=== PATIENT | female | born 2000 | race Caucasian/White ===

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

== ENCOUNTER → 2021-01-04 07:08 | Outpatient (BNVA) | payer OTHER, MEDICAID, SELFPAY | PROVIDERS: PCP Family Medicine; Visit Provider Psychiatry & Neurology Psychiatry | DX: F60.3 Borderline personality disorder (principal); F33.1 Major depressive disorder, recurrent, moderate | CPT/HCPCS: 99213 ==

== ENCOUNTER → 2021-01-25 16:09 | Outpatient (BNVA) | payer OTHER, MEDICAID, SELFPAY | PROVIDERS: PCP Family Medicine; Visit Provider Obstetrics & Gynecology | DX: Z30.9 Encounter for contraceptive management, unspecified (principal) | CPT/HCPCS: 81025 ==

== ENCOUNTER 2021-05-29 20:18 | Emergency (ER) | payer MEDICAID, SELFPAY ==
[2021-05-29 20:58] VITALS: BP 103/61; PULSE 88; RESP 16; TEMP 37.1; O2SAT 99; BMI 32.9
--- NOTE | 2021-05-29 21:09 | W.ED.HA ---
HPI - Headache General: Chief Complaint: Headache Stated Complaint: Migraines, Nuesea, Muscle fatigue Time Seen by Provider: 05/29/21 21:09 History of Present Illness: HPI Narrative: Patient is a 20-year-old female comes to the ED with a migraine. Patient has a history of migraines and says this is just like her typical migraine. Started approximately 4 days ago. Patient takes Depakote to help with migraines. She endorses having photophobia and nausea as well. She rates her migraine an 8 out of 10 and describes the pain is located behind the eyes bilaterally. Associated symptoms: Reports nausea; Deny chest pain, fever(s), rash or vomiting Review of Systems Const: Denies: fever(s), chills or fatigue Eyes: Reports: photophobia; Denies: change in vision or eye discomfort ENMT: Denies: throat pain, odynophagia, nasal discharge or nasal congestion Card: Denies: chest pain, palpitations, edema, swelling of feet/ankles, dyspnea on exertion or orthopnea Resp: Denies: dyspnea, productive cough or non-productive cough GI: Reports: nausea; Denies: abdominal pain, vomiting, diarrhea, constipation or hematochezia : Denies: flank pain, dysuria or hematuria Musc: Denies: neck pain, back pain or extremity swelling Skin/Breast: Denies: rash or new lesions Neuro: Reports: headache(s); Denies: numbness in extremities or weakness in extremities PFS ED PFSH: Medical History Abnormal uterine bleeding (AUB) TSH performed by Dr. Velásquez in July 2017 was normal. Per patient report coagulation studies were normal. -Pelvic ultrasound on 08/2017-normal at [facility], Microgestin 06/15 with iron started however patient was up for pill taker. -Depo-Provera given on 02/21/2018 and controls her symptoms well. -Changed to xulane patch on 09/28/2019 as she did not like weight gain with the depo Borderline personality disorder Depression, controlled and mood disorder managed by [facility] Hernandez No pertinent past medical history Denies history of: Denies diabetes, asthma, hypertension, seizures, DVT/PE and thyroid problems PCP: Dr. Velásquez Psychiatric care Surgical History S/P myringotomy with insertion of tube At age 3 S/P tonsillectomy and adenoidectomy at age 3 S/P wisdom tooth extraction Family History Grandmother Breast cancer Paternal, age at diagnosis unknown Diabetes Maternal grandmother and maternal great grandmother Denies family history of Colon cancer Ovarian cancer Hyperlipidemia Hypertension Thyroid condition Stroke Social History Smoking and tobacco status: never smoked Alcohol intake: unknown History of recent travel: No Additional social history: - Physical Exam Const: COMMON NORMALS: no acute distress, patient oriented x3 and alert GENERAL APPEARANCE: cooperative and comfortable HENMT: COMMON NORMALS: normocephalic HEAD & SCALP: normocephalic MOUTH: Normal oral and palatal mucosa present THROAT: posterior oropharynx normal and uvula midline Neck/C-Spine: COMMON NORMALS: supple GENERAL: Yes normal visual inspection Resp: COMMON NORMALS: normal respiratory effort, No retractions, No use of accessory muscles and clear to auscultation bilaterally AUSCULTATION: clear to auscultation bilaterally Cardio: COMMON NORMALS: regular rate, regular rhythm, S1 normal heart sound present, S2 normal heart sound present, No gallops present (Cardio), No clicks present (Cardio), No murmurs present (Cardio) and Peripheral pulses 2+ throughout RATE: regular rate RHYTHM: regular rhythm HEART SOUNDS: S1 normal heart sound present and S2 normal heart sound present PERIPHERAL PULSES: Peripheral pulses 2+ throughout GI: COMMON NORMALS: Normal to inspection, nondistended, normoactive bowel sounds present, Soft to palpation, non-tender and no masses PALPATION: Yes Soft to palpation : COMMON NORMALS: Yes no CVA tenderness BLADDER/KIDNEY EXAM: Yes no CVA tenderness Back/Pelvis: COMMON NORMALS: no CVA tenderness Neuro: COMMON NORMALS: patient oriented x3, CN's II-XII intact bilaterally, moves all extremities, no focal motor deficits and no sensory deficits noted SENSORIUM/ORIENTATION: Yes alert SENSORY EXAM: Yes extremities (intact) MOTOR EXAM: 5/5 motor strength present throughout Skin: GENERAL SKIN EXAM: dry skin Course Reevaluation(s): Reevaluation #1: Patient's migraine went down to a 3 and is manageable. Patient would like to go home and rest now. Vital Signs: Vital signs: Vital Signs Temperature 98.7 F 05/29/21 20:58 Pulse Rate 87 05/29/21 22:43 Respiratory Rate 16 05/29/21 22:43 Blood Pressure 122/73 05/29/21 22:43 Pulse Oximetry 100 05/29/21 22:43 MDM - Headache MDM Narrative: Medical decision making narrative: Patient is a 20-year-old female comes to the ED with a migraine. Patient has a history of migraine headaches and says that this one is just like her past migraines. Vital stable and no neuro deficits noted on exam. She was given migraine cocktail while here in the ED and migraine improved from an 8 down to a 3. Patient felt like migraine was manageable and she was discharged home. Discharge Plan Discharge Patient Disposition: Home Clinical Impression: Migraine Qualifiers: Migraine type: without aura Status migrainosus presence: without status migrainosus Intractability: not intractable Qualified Code(s): G43.009 - Migraine without aura, not intractable, without status migrainosus Condition: Stable Prescriptions: No Action medroxyprogesterone [Depo-Provera] 150 mg/mL suspension 150 mg IM .EVERY 90 DAYS Qty: 1 RF: 3 fluoxetine 40 mg capsule 40 mg PO QAM Qty: 30 RF: 5 divalproex [Depakote] 250 mg tablet,delayed release (DR/EC) 250 mg PO DAILY Qty: 30 RF: 1 Naprosyn 500 mg tablet 500 mg PO BID PRN (Reason: pain) Qty: 20 RF: 0 Discharge Orders: Discharge ED (Routine); Ordered 05/29/21 Ordered By: Sunday Haji Referrals: Teodoro Velásquez MD [Primary Care Provider] - Discharge Diet: Regular Discharge Activity: Resume usual activity Patient Instructions: Migraine Headache (ED) Activity Restrictions/Additional Instructions: Follow-up with medical provider as directed in 7 to 10 days for reevaluation. Continue taking all home medications as previously prescribed. Return to the ER or your medical provider if condition worsens. Please read and understand discharge instructions. Thank you for choosing [facility] for your healthcare needs today. Please realize this is an emergency room and that we are providing you with a medical screening exam and this may not be complete and all inclusive of all the testing and or work up that you may need to determine your ailment or severity of your illness. It is very important that you follow up as instructed or that you return to the Emergency Department should you have concerns or if your condition changes or worsens in any way. Coding Level of Care Code ED Manager Market Research for Marylu Fwd Exam Comprehensive
[2021-05-29] MEDS: sodium chloride 0.9% 1,000 ML 999 ML IV (21:41)
[2021-05-29] MEDS: diphenhydrAMINE 50 mg/mL SDV 1mL 25 MG IVP (21:42)
[2021-05-29] MEDS: dexamethasone 10 mg/mL INJ IVP (21:44)
[2021-05-29] MEDS: ketorolac 30 mg/mL INJ IVP (21:45)
[2021-05-29] MEDS: metoclopramide 5 mg/mL SDV 2 mL 10 MG IVP (21:47)
[2021-05-29 22:43] VITALS: BP 122/73; PULSE 87; RESP 16; O2SAT 100
== END 2021-05-29 22:44 | disposition home or self-care (01) ==
PROVIDERS: Emergency Provider Physician Assistant; PCP Family Medicine
DX: G43.009 Migraine without aura, not intractable, without status migrainosus (principal)
CPT/HCPCS: 96361; 96374; 96375; 99284; J1100; J1200; J1885; J2765; J7030

== ENCOUNTER 2021-07-27 19:12 | Emergency (ER) | payer MEDICAID, SELFPAY ==
--- NOTE | 2021-07-27 19:20 | ECG_ITS ---
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 Measurements Intervals [place] Rate: 71 P: 98 AR: 272 QRS: -67 QRSD: 93 T: 21 QT: 289 QTc: 315 Interpretive Statements ELECTRONIC ATRIAL PACEMAKER ELECTRONIC VENTRICULAR PACEMAKER -- CONTOUR ANALYSIS BASED ON INTRINSIC RHYTHM INFERIOR MYOCARDIAL INFARCTION , PROBABLY OLD [40+ ms Q WAVE AND/OR ST/T ABNORMALITY IN II/aVF] ANTEROSEPTAL MYOCARDIAL INFARCTION , OF INDETERMINATE AGE [40+ ms Q WAVE IN V1-V4] Compared to ECG 07/27/2021 20:00:07 Myocardial infarct finding now present Sinus tachycardia no longer present Electronically Signed On 07-29-2021 8:37:37 MUSHROOM PACKER by Luli Mesa M.D. [id number]
--- NOTE | 2021-07-27 19:20 | XRR_ITS ---
PROCEDURE INFORMATION: Exam: XR Chest Exam date and time: 07/27/2021 7:20 PM Age: 21 years old Clinical indication: Sternal or substernal pain; Additional info: Cp TECHNIQUE: Imaging protocol: XR of the chest. Views: 1 view. COMPARISON: CR XR chest 1V portable [id number] 12/09/2020 2:36 AM FINDINGS: Lungs: Unremarkable. No consolidation. Pleural spaces: Unremarkable. No pleural effusion. No pneumothorax. Heart/Mediastinum: Unremarkable. No cardiomegaly. Bones/joints: Unremarkable. XR/XR chest 1V portable [id number] IMPRESSION: No acute findings.
[2021-07-27 19:28] VITALS: BP 93/60; PULSE 148; RESP 20; TEMP 38.8; O2SAT 97; BMI 34.0
--- NOTE | 2021-07-27 19:49 | ED_ITS ---
HPI - COVID General: Chief Complaint: COVID symptoms Stated Complaint: Afib Blood pressure Low Time Seen by Provider: 07/27/21 19:37 Triage information: Has fever, cough or shortness of breath . No known COVID + exposure last 14 days History of Present Illness: 21-year-old female who states that over the last 2 days she has been having a fever some generalized body aches. She has a temperature 101.8 states that she has felt had some nausea as well. She states that she does have a headache but has a history of migraines and daily headache states this feels like her previous headaches denies any neck stiffness states headache is a 2 out of 10. Denies any cough or dysuria. No vomiting or diarrhea. COVID 19 common symptoms: positive fever(s), chills, body aches and headache(s); negative dyspnea, throat pain, nausea, vomiting or diarrhea COVID 19 other sytmptoms: negative chest pain COVID Results: SARS-CoV-2 Antigen (Rapid) Negative (Negative) 07/27/21 20:05 07/27/21 Review of Systems Const: Reports: fever(s), chills and body aches; Denies: change in appetite Eyes: Denies: blurry vision or eye discomfort ENMT: Denies: throat pain or dental pain Card: Denies: chest pain Resp: Denies: dyspnea GI: Denies: abdominal pain, nausea, vomiting or diarrhea : Denies: dysuria Musc: Denies: neck pain or back pain Skin/Breast: Denies: rash Neuro: Reports: headache(s) Psych: Denies: depression Bobby/Lymph: Denies: easy bruising All/Imm: Denies: urticaria PFSH ED PFSH: Medical History Abnormal uterine bleeding (AUB) TSH performed by Dr. Velásquez in July 2017 was normal. Per patient report coagulation studies were normal. -Pelvic ultrasound on 08/2017-normal at [facility], Microgestin 06/15 with iron started however patient was up for pill taker. -Depo-Provera given on 02/21/2018 and controls her symptoms well. -Changed to xulane patch on 09/28/2019 as she did not like weight gain with the depo Borderline personality disorder Depression, controlled and mood disorder managed by [facility] Hernandez No pertinent past medical history Denies history of: Denies diabetes, asthma, hypertension, seizures, DVT/PE and thyroid problems PCP: Dr. Velásquez Psychiatric care Surgical History S/P myringotomy with insertion of tube At age 3 S/P tonsillectomy and adenoidectomy at age 3 S/P wisdom tooth extraction Family History Grandmother Breast cancer Paternal, age at diagnosis unknown Diabetes Maternal grandmother and maternal great grandmother Denies family history of Colon cancer Ovarian cancer Hyperlipidemia Hypertension Thyroid condition Stroke Social History Smoking and tobacco status: never smoked Alcohol intake: unknown History of recent travel: No Additional social history: - Physical Exam Const: COMMON NORMALS: no acute distress, patient oriented x3 and healthy appearing HENMT: COMMON NORMALS: normocephalic and atraumatic HEAD & SCALP: normocephalic and atraumatic Eye: COMMON NORMALS: Equal, round and reactive pupils present and EOMs intact bilaterally PUPIL: Yes Equal, round and reactive pupils present Neck/C-Spine: COMMON NORMALS: full ROM, supple and no meningeal signs Chest: COMMONS NORMALS: normal inspection of the chest and normal palpation of entire chest wall Resp: COMMON NORMALS: normal respiratory effort, No retractions, No use of accessory muscles and clear to auscultation bilaterally AUSCULTATION: clear to auscultation bilaterally Cardio: COMMON NORMALS: regular rhythm and No murmurs present (Cardio) RATE: tachycardic RHYTHM: regular rhythm GI: COMMON NORMALS: Normal to inspection, nondistended, normoactive bowel sounds present, Soft to palpation, non-tender and no masses PALPATION: Yes Soft to palpation Extremity: COMMON NORMALS: normal to inspection and full ROM Neuro: COMMON NORMALS: patient oriented x3, moves all extremities and no focal motor deficits MENINGEAL SIGNS: Yes no meningeal signs Psych: COMMON NORMALS: mental status grossly normal, Normal thought process present and cooperative THOUGHT PROCESS: Normal thought process present Skin: COMMON NORMALS: no rashes or lesions noted and no wounds GENERAL SKIN EXAM: no rashes or lesions noted Course Vital Signs: Vital signs: Vital Signs Temperature 101.8 F H 07/27/21 19:28 Pulse Rate 101 H 07/27/21 21:48 Respiratory Rate 20 H 07/27/21 21:48 Blood Pressure 111/60 07/27/21 21:48 Pulse Oximetry 99 07/27/21 21:48 MDM - COVID Medical Decision Making Patient presents here with fever her white count lactate are normal headache resolved with Toradol did offer LP but she states she feels improved she believes it was her migraine and she is headache free currently her vitals are much improved believe she is likely tachycardic at first due to her fever her heart rate is now in the 90s blood pressure is normal patient is requesting discharge will follow blood cultures start on Keflex and have her follow-up with PCP she is return if worsening. Lactic acid was normal as well. Lab Data : 07/27/21 19:45 07/27/21 19:45 Radiology Impressions Chest X-Ray 07/27/21 19:20 IMPRESSION: No acute findings. Laboratory Results WBC 5.9 10^3/uL (4.5-13.0) 07/27/21 19:45 RBC 5.18 10^6/uL (4.1-5.3) 07/27/21 19:45 Hgb 13.6 g/dL (11.5-15.3) 07/27/21 19:45 Hct 40.6 % (37.0-47.0) 07/27/21 19:45 MCV 78.4 fl (81-99) L 07/27/21 19:45 MCH 26.3 pg (28.0-34.0) L 07/27/21 19:45 MCHC 33.5 g/dL (30.0-36.0) 07/27/21 19:45 RDW 13.2 % (12.1-15.1) 07/27/21 19:45 Plt Count 240 10^3/cmm (130-400) 07/27/21 19:45 MPV 11.4 fL (7.4-10.4) H 07/27/21 19:45 Neut % (Auto) 83.5 % 07/27/21 19:45 Lymph % (Auto) 10.2 % 07/27/21 19:45 Villalba % (Auto) 5.6 % 07/27/21 19:45 Eos % (Auto) 0.2 % 07/27/21 19:45 Baso % (Auto) 0.2 % 07/27/21 19:45 Neut # (Auto) 4.93 10^3/uL (1.8-8.0) 07/27/21 19:45 Lymph # (Auto) 0.6 10^3/uL (1.5-6.5) L 07/27/21 19:45 Villalba # (Auto) 0.3 10^3/uL (0.2-0.9) 07/27/21 19:45 Eos # (Auto) 0.0 10^3/uL (0.0-0.8) 07/27/21 19:45 Baso # (Auto) 0.0 10^3/uL (0.0-0.1) 07/27/21 19:45 Nucleated RBC % (auto) 0 % 07/27/21 19:45 Nucleated RBCs # 0.0 /100WBC 07/27/21 19:45 Sodium 135 mmol/L (136-145) L 07/27/21 19:45 Potassium 3.5 mmol/L (3.5-5.1) 07/27/21 19:45 Chloride 102 mmol/L (98-107) 07/27/21 19:45 Carbon Dioxide 20 mmol/L (22-29) L 07/27/21 19:45 Anion Gap 16.5 (5-19) 07/27/21 19:45 BUN 13 mg/dL (6-20) 07/27/21 19:45 Creatinine 0.6 mg/dL (0.5-0.9) 07/27/21 19:45 GFR Calculation 127.5 mL/min (90-130) 07/27/21 19:45 Glucose 100 mg/dL (65-115) 07/27/21 19:45 Calculated Osmolality 280 mOsm/kg (285-295) L 07/27/21 19:45 Lactic Acid 1.0 mmol/L (0.5-2.2) 07/27/21 19:57 Calcium 9.3 mg/dL (8.5-10.5) 07/27/21 19:45 Total Bilirubin 0.5 mg/dL (0.15-1.2) 07/27/21 19:45 AST 11 U/L (0-32) 07/27/21 19:45 ALT 10 U/L (0-33) 07/27/21 19:45 Alkaline Phosphatase 69 IU/L (35-105) 07/27/21 19:45 Total Protein 7.2 g/dL (6.6-8.7) 07/27/21 19:45 Albumin 4.3 g/dL (3.5-5.2) 07/27/21 19:45 Globulin 2.9 g/dL (1.3-4.6) 07/27/21 19:45 HCG, Qual Negative (Negative) 07/27/21 21:04 Urine Color Yellow (Yellow) 07/27/21 21:04 Urine Appearance Clear (CLEAR) 07/27/21 21:04 Urine pH 5 (5-7) 07/27/21 21:04 Ur Specific [place] 1.020 (1.005-1.030) 07/27/21 21:04 Urine Protein Neg (Negative) 07/27/21 21:04 Urine Glucose (UA) Norm (Normal) 07/27/21 21:04 Urine Ketones 1+ (Negative) H 07/27/21 21:04 Urine Blood Neg (Negative) 07/27/21 21:04 Urine Nitrate Negative (Negative) 07/27/21 21:04 Urine Bilirubin 1+ (Negative) H 07/27/21 21:04 Urine Urobilinogen Neg mg/dL (Negative) 07/27/21 21:04 Ur Leukocyte Esterase Negative (Negative) 07/27/21 21:04 Influenza Type A Ag Negative (Negative) 07/27/21 20:05 Influenza Type B Ag Negative (Negative) 07/27/21 20:05 SARS-CoV-2 Ag (Rapid) Negative (Negative) 07/27/21 20:05 Group A Strep Rapid Negative (Negative) 07/27/21 20:05 SARS-CoV-2 Antigen (Rapid) Negative (Negative) 07/27/21 20:05 07/27/21 EKG Data EKG 1: I personally reviewed and interpreted this EKG as follows: EKG interpretation date: 07/27/21 EKG interpretation time: 20:00 Interpretation: sinus tach hr [address] or t wave abnormalities qrs 86 qtc 359 Discharge Plan Discharge Patient Disposition: Home Clinical Impression: Migraine headache Fever Qualifiers: Fever type: unspecified Qualified Code(s): R50.9 - Fever, unspecified Condition: Stable Prescriptions: New cephalexin 500 mg capsule 500 mg PO TID 7 Days Qty: 21 0RF No Action medroxyprogesterone [Depo-Provera] 150 mg/mL suspension 150 mg IM .EVERY 90 DAYS Qty: 1 3RF fluoxetine 40 mg capsule 40 mg PO QAM Qty: 30 5RF divalproex [Depakote] 250 mg tablet,delayed release (DR/EC) 250 mg PO DAILY Qty: 30 1RF Naprosyn 500 mg tablet 500 mg PO BID PRN (Reason: pain) Qty: 20 0RF Discharge Orders: Discharge ED (Routine); Ordered 07/27/21 Ordered By: Denia Gonzalez Referrals: Teodoro Velásquez MD [Primary Care Provider] - 1-3 days Discharge Diet: Advance as tolerated Discharge Activity: Resume usual activity Patient Instructions: Fever in Adults (ED), Acute Headache (ED) Coding Level of Care Code ED Asphalt Screed Operator for Chg Fwd Exam Comprehensive
[2021-07-27 19:55] LABS: Basophils % 0.2 %; Eosinophils % 0.2 %; Hematocrit 40.6 % (37.0-47.0); Hemoglobin 13.6 g/dL (11.5-15.3); Lymphocytes # 0.6 10^3/uL (1.5-6.5); Lymphocytes % 10.2 %; Mean Corpuscular HGB Conc 33.5 g/dL (30.0-36.0); Mean Corpuscular Hemoglobin 26.3 pg (28.0-34.0); Mean Corpuscular Volume 78.4 fl (81-99); Mean Platelet Volume 11.4 fL (7.4-10.4); Monocytes # 0.3 10^3/uL (0.2-0.9); Monocytes % 5.6 %; Neutrophils # 4.93 10^3/uL (1.8-8.0); Neutrophils % 83.5 %; Nucleated Red Blood Cells % 0 %; Platelet Count 240 10^3/cmm (130-400); Red Blood Count 5.18 10^6/uL (4.1-5.3); Red Cell Distribution Width 13.2 % (12.1-15.1); White Blood Count 5.9 10^3/uL (4.5-13.0)
[2021-07-27] MEDS: sodium chloride 0.9% 1,000 ML 999 ML IV ×2 (20:33→21:32)
[2021-07-27] MEDS: acetaminophen 500 mg Tablet 1000 MG PO (20:33)
[2021-07-27] MEDS: ketorolac 30 mg/mL INJ IVP (20:33)
[2021-07-27 20:35] LABS: Alanine Aminotransferase 10 U/L (0-33); Albumin Level 4.3 g/dL (3.5-5.2); Alkaline Phosphatase 69 IU/L (35-105); Anion Gap 16.5 (5-19); Aspartate Amino Transferase 11 U/L (0-32); Blood Urea Nitrogen 13 mg/dL (6-20); Calcium 9.3 mg/dL (8.5-10.5); Carbon Dioxide 20 mmol/L (22-29); Chloride 102 mmol/L (98-107); Creatinine Clr Calc Pharmacy 162.3132; Globulin 2.9 g/dL (1.3-4.6); Glomerular Filtration Rate 127.5 mL/min (90-130); Glucose 100 mg/dL (65-115); Osmolality Calculated 280 mOsm/kg (285-295); Potassium 3.5 mmol/L (3.5-5.1); Sodium 135 mmol/L (136-145); Total Bilirubin 0.5 mg/dL (0.15-1.2); Total Protein 7.2 g/dL (6.6-8.7)
[2021-07-27 20:39] VITALS: O2SAT 97
[2021-07-27 20:44] LABS: Rapid Strep A Test Negative (Negative)
[2021-07-27 21:00] VITALS: BP 108/58; PULSE 108; RESP 20; O2SAT 99
[2021-07-27 21:01] LABS: Influenza A by IFA Negative (Negative); Influenza B by IFA Negative (Negative)
[2021-07-27 21:02] LABS: SARS Covid-2 Antigen Negative (Negative)
[2021-07-27 21:10] LABS: Add Urine Microscopic? NO; Charge for UA Resulting for Rev
[2021-07-27 21:12] LABS: Bilirubin Urine 1+ (Negative); Blood Urine Neg (Negative); Glucose Urine UA Norm (Normal); Ketones Urine 1+ (Negative); Leukocyte Esterase Urine Negative (Negative); Nitrate Urine Negative (Negative); Protein Urine Neg (Negative); Urine Appearance Clear (CLEAR); Urine Color Yellow (Yellow); Urobilinogen Urine Neg (Negative); pH Urine 5 (5-7)
--- NOTE | 2021-07-27 21:20 | ECG_ITS ---
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 Measurements Intervals [place] Rate: 122 P: 36 MI: 138 QRS: 24 QRSD: 86 T: 56 QT: 286 QTc: 409 Interpretive Statements SINUS TACHYCARDIA Compared to ECG 12/09/2020 02:58:12 Sinus rhythm no longer present Sinus arrhythmia no longer present Electronically Signed On 07-29-2021 9:06:36 DATA ANALYSIS MANAGER by Luli Mesa M.D. [id number]
[2021-07-27 21:24] LABS: HCG Qualitative Urine. Negative (Negative)
[2021-07-27 21:48] VITALS: BP 111/60; PULSE 101; RESP 20; O2SAT 99
[2021-07-27] MEDS: cephALEXin 500 mg Capsule PO (22:18)
[2021-07-27 22:19] VITALS: BP 100/62; PULSE 103; RESP 20; TEMP 36.9; O2SAT 100
== END 2021-07-27 22:21 | disposition home or self-care (01) ==
PROVIDERS: Emergency Provider Emergency Medicine; PCP Family Medicine
DX: R50.9 Fever, unspecified (principal); G43.909 Migraine, unspecified, not intractable, without status migrainosus; Z20.822 Contact with and (suspected) exposure to COVID-19
CPT/HCPCS: 71045; 80053; 81003; 81025; 83605; 85025; 87040; 87081; 87426; 87804; 87880; 93005; 96361; 96374; 99284; J1885; J7030

== ENCOUNTER → 2021-08-16 07:49 | Outpatient (BNVA) | payer MEDICAID, SELFPAY | PROVIDERS: PCP Family Medicine; Visit Provider Psychiatry & Neurology Psychiatry | DX: F60.3 Borderline personality disorder (principal); F33.42 Major depressive disorder, recurrent, in full remission | CPT/HCPCS: 99214 ==

== ENCOUNTER 2021-09-25 11:58 | Outpatient (CLI) | payer MEDICAID, OTHER, SELFPAY ==
[2021-09-25 14:43] LABS: Basophils % 0.5 %; Eosinophils # 0.1 10^3/uL (0.0-0.8); Eosinophils % 0.8 %; Hematocrit 39.7 % (37.0-47.0); Hemoglobin 13.4 g/dL (11.5-15.3); Lymphocytes # 1.7 10^3/uL (1.5-6.5); Lymphocytes % 27.1 %; Mean Corpuscular HGB Conc 33.8 g/dL (30.0-36.0); Mean Corpuscular Hemoglobin 26.6 pg (28.0-34.0); Mean Corpuscular Volume 78.9 fl (81-99); Monocytes # 0.4 10^3/uL (0.2-0.9); Neutrophils # 4.13 10^3/uL (1.8-8.0); Neutrophils % 65.4 %; Nucleated Red Blood Cells % 0 %; Platelet Count 275 10^3/cmm (130-400); Red Blood Count 5.03 10^6/uL (4.1-5.3); Red Cell Distribution Width 13.4 % (12.1-15.1); White Blood Count 6.3 10^3/uL (4.5-13.0)
[2021-09-25 15:05] LABS: Ammonia 22 umol/L (11-51)
[2021-09-25 15:19] LABS: Alanine Aminotransferase 12 U/L (0-33); Albumin Level 4.4 g/dL (3.5-5.2); Alkaline Phosphatase 67 IU/L (35-105); Anion Gap 15.6 (5-19); Aspartate Amino Transferase 13 U/L (0-32); Blood Urea Nitrogen 10 mg/dL (6-20); Calcium 9.6 mg/dL (8.5-10.5); Carbon Dioxide 22 mmol/L (22-29); Chloride 100 mmol/L (98-107); Ferritin 80 ng/mL (15-150); Globulin 3.1 g/dL (1.3-4.6); Glomerular Filtration Rate 157.3 mL/min (90-130); Glucose 81 mg/dL (65-115); Iron 30 ug/dL (37-145); Osmolality Calculated 276 mOsm/kg (285-295); Percent Saturation 10.4 % (20-50); Potassium 3.6 mmol/L (3.5-5.1); Sodium 134 mmol/L (136-145); Thyroid Stimulating Hormone 2.79 uIU/mL (0.27-4.20); Total Bilirubin 0.4 mg/dL (0.15-1.2); Total Iron Binding Capacity 286 mcg/dl; Total Protein 7.5 g/dL (6.6-8.7); Unsaturated Iron Binding 256 ug/dL (112-347); Vitamin B12 464 pg/mL (232-1245)
[2021-09-25 15:36] LABS: Folate Level 19.2 ng/mL (4.8-37.3)
[2021-09-25 20:31] LABS: Valproic Acid Level 16.9 ug/mL (50-100)
== END 2021-09-25 11:59 | disposition home or self-care (01) ==
LOC: NSACUTE 13:45
PROVIDERS: PCP Family Medicine; Visit Provider Nurse Practitioner
DX: G43.909 Migraine, unspecified, not intractable, without status migrainosus (principal)
CPT/HCPCS: 80053; 80164; 82140; 82607; 82728; 82746; 83540; 83550; 84443; 85025; 99213; 99214

== ENCOUNTER → 2021-10-27 08:01 | Outpatient (BNVA) | payer OTHER, SELFPAY | PROVIDERS: PCP Family Medicine; Visit Provider Psychiatry & Neurology Psychiatry | DX: F33.42 Major depressive disorder, recurrent, in full remission (principal); F60.3 Borderline personality disorder | CPT/HCPCS: 99214 ==

== ENCOUNTER → 2022-09-24 11:00 | Outpatient (BNVA) | payer MEDICAID, SELFPAY | PROVIDERS: PCP Family Medicine; Visit Provider Podiatrist Foot & Ankle Surgery | DX: M72.2 Plantar fascial fibromatosis (principal) | CPT/HCPCS: 73630 ==

== ENCOUNTER → 2022-11-02 09:30 | Outpatient (BNVA) | payer MEDICAID, SELFPAY | PROVIDERS: PCP Family Medicine; Visit Provider Nurse Practitioner Women's Health | DX: Z12.4 Encounter for screening for malignant neoplasm of cervix (principal); N93.9 Abnormal uterine and vaginal bleeding, unspecified | CPT/HCPCS: 88175 ==

== ENCOUNTER → 2023-02-06 11:03 | Outpatient (BNVA) | payer MEDICAID, SELFPAY | PROVIDERS: PCP Family Medicine; Visit Provider Specialist | DX: G43.011 Migraine without aura, intractable, with status migrainosus (principal); F60.3 Borderline personality disorder; G43.711 Chronic migraine without aura, intractable, with status migrainosus; N93.9 Abnormal uterine and vaginal bleeding, unspecified; R00.0 Tachycardia, unspecified | CPT/HCPCS: 80053; 82306; 82607; 82746; 84443; 85025 ==

== ENCOUNTER → 2023-03-06 11:19 | Outpatient (BNVA) | payer MEDICAID, SELFPAY | PROVIDERS: PCP Family Medicine; Visit Provider Podiatrist Foot & Ankle Surgery | DX: M72.2 Plantar fascial fibromatosis (principal) | CPT/HCPCS: 36415; 80048; 85025; 85651; 86036; 86038; 86140; 86160; 86162; 86200; 86235; 86255; 86376; 86431; 86812 ==

== ENCOUNTER 2023-05-03 23:34 | Emergency (ER) | payer MEDICAID, SELFPAY ==
[2023-05-03 23:38] VITALS: BP 118/65; PULSE 106; RESP 18; TEMP 37.1; O2SAT 96; BMI 39.4
--- NOTE | 2023-05-04 00:18 | W.ED.GENADLT ---
Documented by User: NYLA Cleaning 05/04/23 01:13 HPI - General Adult General: Chief complaint: General Medical Stated complaint: covid exposure, tachy Time Seen by Provider: 05/04/23 00:09 History of Present Illness: Patient is a 22-year-old female with a past medical history significant for migraines, depression, and borderline personality disorder who presents to the emergency department for evaluation of cough, congestion, chest pain, and a known COVID exposure. Patient reports that her symptoms started last night and has continued to progress. Cough is productive with yellow sputum production. Endorses associated clear rhinorrhea. Patient admits to a sore throat and retrosternal chest pain. Patient currently rates her chest pain as a 4 out of 10 in severity that she describes as a burning/sharp pain. Pain is reproducible to palpation. Patient states that she has a pulse oximetry at home and her heart rate has been going over 200. Patient states that she has a known history of chronic tachycardia, however, her heart rate is not normally that fast. Heart rate in triage is 106 bpm. Patient states that she also has a mild bilateral frontal headache with associated lightheadedness and dizziness. Patient has been nauseous but denies any episodes of emesis. Patient states that she will get intermittent abdominal cramping. Admits to constipation. Patient states that she utilizes the Depo-Provera shot and has not had a menstrual cycle in quite some time. She denies numbness, tingling, visual disturbances, fever, chills, diarrhea, dysuria, hematuria, melena, hematochezia, otalgia, otorrhea, extremity weakness, or any other associated symptoms. No other complaints at this time. Patient denies history of DVT/PE, oral contraceptive medication, or recent surgery/long distance travels. Associated symptoms: Reports dyspnea, headache(s) and nausea; Deny chest pain, rash, palpitations or vomiting Review of Systems General: Reports: 10 or more systems reviewed and unremarkable except in HPI and below Const: Denies: fever(s) or chills Eyes: Denies: change in vision or blurry vision ENMT: Reports: throat pain, nasal discharge and nasal congestion; Denies: ear or mastoid pain or ear discharge Card: Reports: lightheadedness; Denies: chest pain or palpitations Resp: Reports: dyspnea and productive cough; Denies: wheezing or stridor GI: Reports: abdominal pain, nausea and constipation; Denies: vomiting or diarrhea : Denies: flank pain, dysuria or hematuria Musc: Denies: neck pain or back pain Skin/Breast: Denies: rash Neuro: Reports: headache(s) and dizziness; Denies: numbness in extremities, weakness in extremities or vertigo PFSH ED PFSH: Medical History Abnormal uterine bleeding (AUB) TSH performed by Dr. Velásquez in July 2017 was normal. Per patient report coagulation studies were normal. -Pelvic ultrasound on 08/2017-normal at [facility], Microgestin 06/15 with iron started however patient was up for pill taker. -Depo-Provera given on 02/21/2018 and controls her symptoms well. -Changed to xulane patch on 09/28/2019 as she did not like weight gain with the depo Borderline personality disorder Depression, controlled and mood disorder managed [facility] Hernandez Migraine headache Reports having chronic daily headaches and sees a neurologist-nurse practitioner-[facility] and is on medication. No pertinent past medical history Denies history of: Denies diabetes, asthma, hypertension, seizures, DVT/PE and thyroid problems PCP: Dr. Velásquez Surgical History S/P myringotomy with insertion of tube At age 3 S/P tonsillectomy and adenoidectomy at age 3 S/P wisdom tooth extraction Family History Grandmother Breast cancer Paternal, age at diagnosis unknown Diabetes Maternal grandmother and maternal great grandmother Mother Diabetes Denies family history of Colon cancer Ovarian cancer Hyperlipidemia Hypertension Thyroid disease Stroke Social History Smoking and tobacco/nicotine status: never used tobacco/nicotine Second hand smoke exposure: Yes Alcohol intake: never Physical Exam Const: COMMON NORMALS: no acute distress, patient oriented x3 and alert HENMT: COMMON NORMALS: normocephalic, atraumatic, TM's normal bilaterally and moist oral mucous membranes HEAD & SCALP: normocephalic and atraumatic TYMPANIC MEMBRANE: TM's normal bilaterally OTHER: Posterior oropharynx mildly erythematous without swelling, lesions, or exudates. No evidence of retropharyngeal abscess, peritonsillar abscess, or Jacob's angina. Bilateral tympanic membranes pearly guido without evidence of effusion or hemotympanums. Neck/C-Spine: COMMON NORMALS: full ROM, no lymphadenopathy, supple, no meningeal signs and no JVD OTHER: Negative Brudzinski's and Kernig sign. No evidence of meningitis. Chest: COMMONS NORMALS: normal inspection of the chest Resp: COMMON NORMALS: normal respiratory effort, No retractions, No use of accessory muscles and clear to auscultation bilaterally AUSCULTATION: clear to auscultation bilaterally Cardio: COMMON NORMALS: no JVD, No gallops present (Cardio), No clicks present (Cardio), No murmurs present (Cardio), No rub (Cardio) and Peripheral pulses 2+ throughout RATE: tachycardic PERIPHERAL PULSES: Peripheral pulses 2+ throughout GI: COMMON NORMALS: Normal to inspection, nondistended, normoactive bowel sounds present, Soft to palpation and non-tender PALPATION: Yes Soft to palpation Extremity: OTHER: Moving bilateral upper and lower extremities without weakness or deficit. Neuro: COMMON NORMALS: patient oriented x3 SENSORIUM/ORIENTATION: Yes alert MENINGEAL SIGNS: Yes no meningeal signs OTHER: Sensation intact the bilateral upper and lower extremities. No focal neurological deficits noted on examination. Patient is alert and oriented x 4. Course Vital Signs: Vital signs: Vital Signs Temperature 98.7 F 05/03/23 23:38 Pulse Rate 96 05/04/23 01:00 Respiratory Rate 16 05/04/23 01:00 Blood Pressure 97/71 05/04/23 01:00 Pulse Oximetry 100 05/04/23 01:00 Oxygen Delivery Me thod Room Air 05/03/23 23:38 [facility] - General Adult Medical Decision Making Patient is a 22-year-old female with a past medical history significant for migraines, depression, and borderline personality disorder who presents to the emergency department for evaluation of cough, congestion, chest pain, and a known COVID exposure. On physical examination patient is nontoxic and in no acute distress. Patient was tachycardic in triage with a heart rate of 106 bpm. 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 Wells criteria for pulmonary embolism was 1.5. I do not think pulmonary embolism is likely at this time. CBC, CMP, EKG, troponin, urinalysis, urine , lipase, and chest x-ray currently pending. Influenza, rapid strep, and COVID-19 pending. At this point in time plan of care was passed over to my colleague Dr. Sykes in the emergency department. Lab Data 05/04/23 00:50 12 00:50 Radiology Impressions Chest X-Ray 05/04/23 00:29 IMPRESSION: No acute findings. Laboratory Results WBC 5.33 10^3/uL (3.29-11.43) 05/04/23 00:50 RBC 4.87 10^6/uL (3.85-5.65) 05/04/23 00:50 Hgb 12.50 g/dL (11.27-16.99) 05/04/23 00:50 Hct 37.1 % (36-47) 05/04/23 00:50 MCV 76.2 fl (85-98) L 05/04/23 00:50 MCH 25.7 pg (27-33) L 05/04/23 00:50 MCHC 33.7 g/dL (30-55) 05/04/23 00:50 RDW 13.5 % (12.1-15.1) 05/04/23 00:50 Plt Count 237 10^3/cmm (157-399) 05/04/23 00:50 MPV 10.9 fL (7.4-10.4) H 05/04/23 00:50 Neut % (Auto) 63.9 % 05/04/23 00:50 Lymph % (Auto) 26.1 % 05/04/23 00:50 [place] % (Auto) 8.1 % 05/04/23 00:50 Eos % (Auto) 1.3 % 05/04/23 00:50 Baso % (Auto) 0.4 % 05/04/23 00:50 Neut # (Auto) 3.41 10^3/uL (1.8-7.7) 05/04/23 00:50 Lymph # (Auto) 1.4 10^3/uL (0.8-4.8) 05/04/23 00:50 [place] # (Auto) 0.4 10^3/uL (0.2-0.9) 05/04/23 00:50 Eos # (Auto) 0.1 10^3/uL (0.0-0.8) 05/04/23 00:50 Baso # (Auto) 0.0 10^3/uL (0.0-0.1) 05/04/23 00:50 Nucleated RBC % (auto) 0 % 05/04/23 00:50 Nucleated RBCs # 0.0 /100WBC 05/04/23 00:50 Sodium 135 mmol/L (136-145) L 05/04/23 00:50 Potassium 3.8 mmol/L (3.5-5.1) 05/04/23 00:50 Chloride 102 mmol/L (98-107) 05/04/23 00:50 Carbon Dioxide 22 mmol/L (22-29) 05/04/23 00:50 Anion Gap 14.8 (5-19) 05/04/23 00:50 BUN 9 mg/dL (6-20) 05/04/23 00:50 Creatinine 0.6 mg/dL (0.5-0.9) 05/04/23 00:50 GFR Calculation 126.2 mL/min (90-130) 05/04/23 00:50 Glucose 92 mg/dL (65-115) 05/04/23 00:50 Calculated Osmolality 278 mOsm/kg (285-295) L 05/04/23 00:50 Calcium 9.4 mg/dL (8.5-10.5) 05/04/23 00:50 Total Bilirubin 0.8 mg/dL (0.15-1.2) 05/04/23 00:50 AST 14 U/L (0-32) 05/04/23 00:50 ALT 18 U/L (0-33) 05/04/23 00:50 Alkaline Phosphatase 69 U/L (35-105) 05/04/23 00:50 Troponin T Baseline < 6 ng/L (0-10) 05/04/23 00:50 Troponin T 120 Minute 6.00 ng/L (0-10) 05/04/23 02:47 Delta Troponin T 0.34274 ABS# (0-10) 05/04/23 02:47 Total Protein 6.5 g/dL (6.6-8.7) L 05/04/23 00:50 Albumin 4.3 g/dL (3.5-5.2) 05/04/23 00:50 Globulin 2.2 g/dL (1.3-4.6) 05/04/23 00:50 Lipase 17 U/L (13-60) 05/04/23 00:50 HCG, Qual Negative (Negative) 05/04/23 03:29 Influenza Type A Ag negative (Negative) 05/04/23 00:50 Influenza Type B Ag negative (Negative) 05/04/23 00:50 SARS-CoV-2 Ag (Rapid) Positive (Negative) H 05/04/23 00:50 Group A Strep Rapid Negative (Negative) 05/04/23 00:50 XR interpretation done by ED provider, pending radiology final review EKG Data EKG 1: Computer generated interpretation: Chest X-Ray 05/04/23 00:29 IMPRESSION: No acute findings. Discharge Plan Discharge Patient Disposition: Home Clinical Impression: COVID-19 Condition: Stable Prescriptions: No Action ketorolac 10 mg tablet 10 mg PO BID PRN (Reason: pain) Qty: 10 0RF Rx Instructions: Take every 8 hours as needed for headache not relieved by Imitrex. quetiapine [Seroquel] 25 mg tablet 25 mg PO DAILY Qty: 30 1RF Rx Instructions: Take daily at bedtime meloxicam 15 mg tablet 15 mg PO DAILY 30 Days Qty: 30 1RF promethazine 25 mg tablet 25 mg PO DAILY PRN (Reason: nausea and vomiting) Qty: 10 3RF Rx Instructions: Take with Imitrex at onset of headache medroxyprogesterone [Depo-Provera] 150 mg/mL suspension 150 mg IM .EVERY 90 DAYS Qty: 1 3RF Botox 100 unit recon soln 155 unit SUBCUT ONCE Qty: 2 0RF prazosin 1 mg capsule 1 mg PO DAILY bupropion HCl [Wellbutrin XL] 150 mg tablet extended release 24 hr 150 mg PO QAM propranolol 10 mg tablet 10 mg PO TID diazepam 10 mg tablet 10 mg PO ONCE PRN (Reason: anxiety) 1 Days Qty: 2 2RF Rx Instructions: Take 1 prior to procedure and repeat if necessary sumatriptan succinate [Imitrex] 50 mg tablet See Rx Instructions PO .COMPLEX Qty: 9 3RF Rx Instructions: take 1 tab at onset of headache; if no relief may repeat 1 tab after at least 2 hrs; max = 4 tabs/24 hr PO Emgality Pen 120 mg/mL pen injector See Rx Instructions .ROUTE .COMPLEX Qty: 1 0RF Dose Instruction: inject 1ml subcutaneously ONCE monthly Rx Instructions: inject 1ml subcutaneously ONCE monthly; must have appointment for more refills Discharge Orders: Discharge ED (Routine); Ordered 05/04/23 Ordered By: Soy Sykes Referrals: Teodoro Velásquez MD [Primary Care Provider] - 1 week Patient Instructions: COVID-19 (Coronavirus Disease 2019) (ED) Activity Restrictions/Additional Instructions: Please take Tylenol and/or Motrin for your fever and bodyaches. Please push plenty of fluids. Please follow-up with your family practice physician in the next 7 to 10 days for further evaluation and treatment as needed. Coding Level of Care Code ED Psychology Physician for Chg Fwd Documented by User: Soy Sykes DO 05/04/23 04:48 HPI - General Adult General: Chief complaint: General Medical Stated complaint: covid exposure, tachy Time Seen by Provider: 05/04/23 00:09 [facility] ED PFS: Medical History Abnormal uterine bleeding (AUB) TSH performed by Dr. Velásquez in July 2017 was normal. Per patient report coagulation studies were normal. -Pelvic ultrasound on 08/2017-normal at [facility], Microgestin 06/15 with iron started however patient was up for pill taker. -Depo-Provera given on 02/21/2018 and controls her symptoms well. -Changed to xulane patch on 09/28/2019 as she did not like weight gain with the depo Borderline personality disorder Depression, controlled and mood disorder managed by [facility] Hernandez Migraine headache Reports having chronic daily headaches and sees a neurologist-nurse practitioner-[facility] and is on medication. No pertinent past medical history Denies history of: Denies diabetes, asthma, hypertension, seizures, DVT/PE and thyroid problems PCP: Dr. Velásquez Surgical History S/P myringotomy with insertion of tube At age 3 S/P tonsillectomy and adenoidectomy at age 3 S/P wisdom tooth extraction Family History Grandmother Breast cancer Paternal, age at diagnosis unknown Diabetes Maternal grandmother and maternal great grandmother Mother Diabetes Denies family history of Colon cancer Ovarian cancer Hyperlipidemia Hypertension Thyroid disease Stroke Social History Smoking and tobacco/nicotine status: never used tobacco/nicotine Second hand smoke exposure: Yes Alcohol intake: never Course Vital Signs: Vital signs: Vital Signs Temperature 98.7 F 05/03/23 23:38 Pulse Rate 96 05/04/23 01:00 Respiratory Rate 16 05/04/23 01:00 Blood Pressure 97/71 05/04/23 01:00 Pulse Oximetry 100 05/04/23 01:00 Oxygen Delivery Me thod Room Air 05/03/23 23:38 MDM - General Adult Lab Data 05/04/23 00:50 05/04/23 00:50 Radiology Impressions Chest X-Ray 05/04/23 00:29 IMPRESSION: No acute findings. Laboratory Results WBC 5.33 10^3/uL (3.29-11.43) 05/04/23 00:50 RBC 4.87 10^6/uL (3.85-5.65) 05/04/23 00:50 Hgb 12.50 g/dL (11.27-16.99) 05/04/23 00:50 Hct 37.1 % (36-47) 05/04/23 00:50 MCV 76.2 fl (85-98) L 05/04/23 00:50 MCH 25.7 pg (27-33) L 05/04/23 00:50 MCHC 33.7 g/dL (30-55) 05/04/23 00:50 RDW 13.5 % (12.1-15.1) 05/04/23 00:50 Plt Count 237 10^3/cmm (157-399) 05/04/23 00:50 MPV 10.9 fL (7.4-10.4) H 05/04/23 00:50 Neut % (Auto) 63.9 % 05/04/23 00:50 Lymph % (Auto) 26.1 % 05/04/23 00:50 [place] % (Auto) 8.1 % 05/04/23 00:50 Eos % (Auto) 1.3 % 05/04/23 00:50 Baso % (Auto) 0.4 % 05/04/23 00:50 Neut # (Auto) 3.41 10^3/uL (1.8-7.7) 05/04/23 00:50 Lymph # (Auto) 1.4 10^3/uL (0.8-4.8) 05/04/23 00:50 [place] # (Auto) 0.4 10^3/uL (0.2-0.9) 05/04/23 00:50 Eos # (Auto) 0.1 10^3/uL (0.0-0.8) 05/04/23 00:50 Baso # (Auto) 0.0 10^3/uL (0.0-0.1) 05/04/23 00:50 Nucleated RBC % (auto) 0 % 05/04/23 00:50 Nucleated RBCs # 0.0 /100WBC 05/04/23 00:50 Sodium 135 mmol/L (136-145) L 05/04/23 00:50 Potassium 3.8 mmol/L (3.5-5.1) 05/04/23 00:50 Chloride 102 mmol/L (98-107) 05/04/23 00:50 Carbon Dioxide 22 mmol/L (22-29) 05/04/23 00:50 Anion Gap 14.8 (5-19) 05/04/23 00:50 BUN 9 mg/dL (6-20) 05/04/23 00:50 Creatinine 0.6 mg/dL (0.5-0.9) 05/04/23 00:50 GFR Calculation 126.2 mL/min (90-130) 05/04/23 00:50 Glucose 92 mg/dL (65-115) 05/04/23 00:50 Calculated Osmolality 278 mOsm/kg (285-295) L 05/04/23 00:50 Calcium 9.4 mg/dL (8.5-10.5) 05/04/23 00:50 Total Bilirubin 0.8 mg/dL (0.15-1.2) 05/04/23 00:50 AST 14 U/L (0-32) 05/04/23 00:50 ALT 18 U/L (0-33) 05/04/23 00:50 Alkaline Phosphatase 69 U/L (35-105) 05/04/23 00:50 Troponin T Baseline < 6 ng/L (0-10) 05/04/23 00:50 Troponin T 120 Minute 6.00 ng/L (0-10) 05/04/23 02:47 Delta Troponin T 0.26363 ABS# (0-10) 05/04/23 02:47 Total Protein 6.5 g/dL (6.6-8.7) L 05/04/23 00:50 Albumin 4.3 g/dL (3.5-5.2) 05/04/23 00:50 Globulin 2.2 g/dL (1.3-4.6) 05/04/23 00:50 Lipase 17 U/L (13-60) 05/04/23 00:50 HCG, Qual Negative (Negative) 05/04/23 03:29 Influenza Type A Ag negative (Negative) 05/04/23 00:50 Influenza Type B Ag negative (Negative) 05/04/23 00:50 SARS-CoV-2 Ag (Rapid) Positive (Negative) H 05/04/23 00:50 Group A Strep Rapid Negative (Negative) 05/04/23 00:50 EKG Data EKG 1: I personally reviewed and interpreted this EKG as follows: EKG interpretation date: 05/04/23 EKG interpretation time: 01:42 Prior EKG tracings: not available for review Interpretation: EKG showed ventricular rate 94 beats minute, DC interval 152, QRS duration 84, QTc 384, sinus rhythm Computer generated interpretation: Chest X-Ray 05/04/23 00:29 IMPRESSION: No acute findings. Discharge Plan Discharge Patient Disposition: Home Clinical Impression: COVID-19 Condition: Stable Prescriptions: No Action ketorolac 10 mg tablet 10 mg PO BID PRN (Reason: pain) Qty: 10 0RF Rx Instructions: Take every 8 hours as needed for headache not relieved by Imitrex. quetiapine [Seroquel] 25 mg tablet 25 mg PO DAILY Qty: 30 1RF Rx Instructions: Take daily at bedtime meloxicam 15 mg tablet 15 mg PO DAILY 30 Days Qty: 30 1RF promethazine 25 mg tablet 25 mg PO DAILY PRN (Reason: nausea and vomiting) Qty: 10 3RF Rx Instructions: Take with Imitrex at onset of headache medroxyprogesterone [Depo-Provera] 150 mg/mL suspension 150 mg IM .EVERY 90 DAYS Qty: 1 3RF Botox 100 unit recon soln 155 unit SUBCUT ONCE Qty: 2 0RF prazosin 1 mg capsule 1 mg PO DAILY bupropion HCl [Wellbutrin XL] 150 mg tablet extended release 24 hr 150 mg PO QAM propranolol 10 mg tablet 10 mg PO TID diazepam 10 mg tablet 10 mg PO ONCE PRN (Reason: anxiety) 1 Days Qty: 2 2RF Rx Instructions: Take 1 prior to procedure and repeat if necessary sumatriptan succinate [Imitrex] 50 mg tablet See Rx Instructions PO .COMPLEX Qty: 9 3RF Rx Instructions: take 1 tab at onset of headache; if no relief may repeat 1 tab after at least 2 hrs; max = 4 tabs/24 hr PO Emgality Pen 120 mg/mL pen injector See Rx Instructions .ROUTE .COMPLEX Qty: 1 0RF Dose Instruction: inject 1ml subcutaneously ONCE monthly Rx Instructions: inject 1ml subcutaneously ONCE monthly; must have appointment for more refills Discharge Orders: Discharge ED (Routine); Ordered 05/04/23 Ordered By: Soy Sykes Referrals: Teodoro Velásquez MD [Primary Care Provider] - 1 week Patient Instructions: COVID-19 (Coronavirus Disease 2019) (ED) Activity Restrictions/Additional Instructions: Please take Tylenol and/or Motrin for your fever and bodyaches. Please push plenty of fluids. Please follow-up with your family practice physician in the next 7 to 10 days for further evaluation and treatment as needed. Coding Level of Care Code ED Psychology Physician for Marylu Espinosa
--- NOTE | 2023-05-04 00:29 | XRR_ITS ---
PROCEDURE INFORMATION: Exam: XR Chest Exam date and time: 05/04/2023 12:34 AM Age: 22 years old Clinical indication: Pain; Chest pressure; Patient HX: C/O chest discomfort with cough and congestion. ; Additional info: Chest pain TECHNIQUE: Imaging protocol: Radiologic exam of the chest. Views: 2 views. COMPARISON: CR XR chest 1V portable [id number] 07/27/2021 7:25 PM FINDINGS: Lungs: Unremarkable. No consolidation. Pleural spaces: Unremarkable. No pleural effusion. No pneumothorax. Heart/Mediastinum: Unremarkable. No cardiomegaly. Bones/joints: Unremarkable. XR/XR chest 2V* [id number] IMPRESSION: No acute findings.
[2023-05-04 01:00] VITALS: BP 97/71; PULSE 96; RESP 16; O2SAT 100
[2023-05-04 01:00] LABS: Basophils % 0.4 %; Eosinophils # 0.1 10^3/uL (0.0-0.8); Eosinophils % 1.3 %; Hematocrit 37.1 % (36-47); Lymphocytes # 1.4 10^3/uL (0.8-4.8); Lymphocytes % 26.1 %; Mean Corpuscular HGB Conc 33.7 g/dL (30-55); Mean Corpuscular Hemoglobin 25.7 pg (27-33); Mean Corpuscular Volume 76.2 fl (85-98); Mean Platelet Volume 10.9 fL (7.4-10.4); Monocytes # 0.4 10^3/uL (0.2-0.9); Monocytes % 8.1 %; Neutrophils # 3.41 10^3/uL (1.8-7.7); Neutrophils % 63.9 %; Nucleated Red Blood Cells % 0 %; Platelet Count 237 10^3/cmm (157-399); Red Blood Count 4.87 10^6/uL (3.85-5.65); Red Cell Distribution Width 13.5 % (12.1-15.1); White Blood Count 5.33 10^3/uL (3.29-11.43)
[2023-05-04] MEDS: sodium chloride 0.9% 1,000 ML 999 ML IV (01:04)
[2023-05-04 01:23] LABS: Rapid Strep A Test Negative (Negative); Troponin(5th) Baseline < 6 ng/L (0-10)
[2023-05-04 01:26] LABS: Alanine Aminotransferase 18 U/L (0-33); Albumin Level 4.3 g/dL (3.5-5.2); Alkaline Phosphatase 69 U/L (35-105); Anion Gap 14.8 (5-19); Aspartate Amino Transferase 14 U/L (0-32); Blood Urea Nitrogen 9 mg/dL (6-20); Calcium 9.4 mg/dL (8.5-10.5); Carbon Dioxide 22 mmol/L (22-29); Chloride 102 mmol/L (98-107); Creatinine Clr Calc Pharmacy 174.5549; Globulin 2.2 g/dL (1.3-4.6); Glomerular Filtration Rate 126.2 mL/min (90-130); Glucose 92 mg/dL (65-115); Lipase 17 U/L (13-60); Osmolality Calculated 278 mOsm/kg (285-295); Potassium 3.8 mmol/L (3.5-5.1); Sodium 135 mmol/L (136-145); Total Bilirubin 0.8 mg/dL (0.15-1.2); Total Protein 6.5 g/dL (6.6-8.7)
[2023-05-04 01:27] LABS: Influenza A by IFA negative (Negative); Influenza B by IFA negative (Negative)
[2023-05-04 01:38] LABS: SARS Covid-2 Antigen Positive (Negative)
--- NOTE | 2023-05-04 01:42 | ECG_ITS ---
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 Measurements Intervals [place] Rate: 94 P: 28 VT: 152 QRS: 7 QRSD: 84 T: 43 QT: 332 QTc: 416 Interpretive Statements SINUS RHYTHM Compared to ECG 07/27/2021 22:56:47 Atrial-paced complex(es) or rhythm no longer present Ventricular-paced complex(es) or rhythm no longer present Myocardial infarct finding no longer present Electronically Signed On 05-04-2023 8:58:18 POLICY ADVISER by Jordan Bruno M.D. [id number]
[2023-05-04 03:30] LABS: Troponin 5 2HR Delta 0.00001 ABS# (0-10)
[2023-05-04 03:38] LABS: HCG Qualitative Urine. Negative (Negative)
[2023-05-04 05:10] LABS: Add Urine Microscopic? YES; Bilirubin Urine Neg (Negative); Blood Urine Neg (Negative); Glucose Urine UA Norm (Normal); Ketones Urine Negative (Negative); Leukocyte Esterase Urine Negative (Negative); Nitrate Urine Negative (Negative); Protein Urine Neg (Negative); RBC Urine 0-4 /hpf (0-2); Specific Gravity, Urine 1.005 (1.005-1.030); Squamous Epithelial Cell Urine 0-4 /hpf (0-5); Urine Appearance Hazy (CLEAR); Urine Color Dark Yellow (Yellow); Urobilinogen Urine 4 mg/dL (Negative); WBC Urine 0-4 /hpf (0-5); pH Urine 7 (5-7)
[2023-05-04 05:11] LABS: Add Urine Culture? No; Bacteria Urine TRACE /hpf; Mucus Urine 1+ /hpf
== END 2023-05-04 05:08 | disposition home or self-care (01) ==
PROVIDERS: Emergency Provider Physician Assistant; PCP Family Medicine
DX: U07.1 COVID-19 (principal); R00.0 Tachycardia, unspecified
CPT/HCPCS: 36415; 71046; 80053; 81001; 81025; 83690; 84484; 85025; 87081; 87426; 87804; 87880; 93005; 96360; 99284; J7030

== ENCOUNTER 2023-06-26 06:26 | Day surgery (SDC) | payer MEDICAID, SELFPAY ==
[2023-06-26 06:44] VITALS: BP 119/67; PULSE 111; RESP 18; TEMP 36.1; O2SAT 97; BMI 39.4
[2023-06-26 06:49] LABS: OR HCG Qualitative Urine Negative (Negative)
--- NOTE | 2023-06-26 06:50 | W.PM.OPSUD ---
Surgery/Procedure H&P Update DATE OF PROCEDURE: June 26, 2023 DATE H&P PERFORMED: 06/04/23 H&P UPDATE INFORMATION: I have reviewed H&P completed within last 30 days, I have examined patient prior to procedure and No changes to prior documentation PLANNED PROCEDURE: Operation Date: 06/26/23 07:30 Proposed Procedures p 92905 colon G0121 screen colon A risk K92.1,K62.89(Not Applicable) - Rodrigue Suarez,
[2023-06-26] MEDS: sodium chloride 0.9% 1,000 ML 30 ML IV (06:53)
--- NOTE | 2023-06-26 06:58 | ANES.PREANE2 ---
Pre-Anesthetic Assessment Height/Weight: Height 1.63 m Weight 104.326 kg Temp Pulse Resp BP Pulse Ox O2 Del Method 97 F L 111 H 18 119/67 97 Room Air 06/26/23 06:44 06/26/23 06:44 06/26/23 06:44 06/26/23 06:44 06/26/23 06:44 06/26/23 06:44 Preop Diagnosis: rectal pain and bleeding Operation Date: 06/26/23 07:30 Proposed Procedures p [id number] colon G0121 screen colon A risk K92.1,K62.89(Not Applicable) - Rodrigue Suarez DO Familial anesthetic complications: None Was Beta Adithya taken within 24 hours: N/A Was Clonidine taken within 24 hours: N/A Last intake: Intake Last Liquid Date 06/25/23 Last Liquid Time 22:00 Last Solid Date 06/24/23 Last Solid Time 20:00 Social No alcohol and No tobacco Exam alert and oriented x 3 Airway Submandibular: within normal limits Cervical ROM: within normal limits Mallampati: Class I History/ROS No significant history except as noted Pulmonary Asthma and None reported Exercise induced asthma. Worse as child CV/HEM None reported None reported Hepatic None reported GI None reported Metabolic None reported Musc/skel None reported Neuropsych Anxiety Anesthetic Plan ASA status: 2 Anesthesia: Anesthesia Evaluation and Nurse-admin mod sedation Risk of > 500 ml blood loss (7ml/kg in children): No Medications/Allergies Home Medications Medication Instructions Recorded Confirmed Last Taken Type promethazine 25 mg tablet 25 mg PO DAILY PRN nausea and 09/25/21 06/24/23 Unknown Rx vomiting #10 tabs ketorolac 10 mg tablet 10 mg PO BID PRN pain #10 tabs 08/29/22 06/24/23 Unknown Rx medroxyprogesterone 150 mg/mL 150 mg IM .EVERY 90 DAYS #1 mL 11/02/22 06/24/23 05/02/23 Rx intramuscular suspension (Depo-Provera) hydrocortisone 2.5 % topical cream 1 applic OH QID PRN hemorrhoids 10 06/04/23 06/24/23 06/24/23 Rx with perineal applicator days #30 grams (Anusol-HC) polyethylene glycol 3350 17 4 g PO DAILY PRN pre-procedure 06/04/23 06/24/23 Unknown History gram/dose oral powder (Miralax) Allergies Allergy/AdvReac Type Severity Reaction Status Date / Time morphine Allergy Mild Unknown Verified 06/04/23 10:12 animal dander Allergy Unknown Verified 06/04/23 10:12 chocolate flavor Allergy ADR-Nausea Verified 06/04/23 10:12 risperidone [From Risperdal] AdvReac Intermediate Verified 06/04/23 10:12 Current Medications Generic Name Dose Route Start Last Admin Trade Name Freq PRN Reason Stop Dose Admin Sodium Chloride 1,000 mls @ 30 mls/hr 06/26/23 06:30 06/26/23 06:53 Sodium Chloride 0.9% IV 06/27/23 06:29 30 mls/hr .Q24H JOHN Administration PFSH Anesthesia Medical History Migraine headache Reports having chronic daily headaches and sees a neurologist-nurse practitioner-[facility] and is on medication. Abnormal uterine bleeding (AUB) TSH performed by Dr. Velásquez in July 2017 was normal. Per patient report coagulation studies were normal. -Pelvic ultrasound on 08/2017-normal at [facility], Microgestin 06/15 with iron started however patient was up for pill taker. -Depo-Provera given on 02/21/2018 and controls her symptoms well. -Changed to xulane patch on 09/28/2019 as she did not like weight gain with the depo Depression, controlled and mood disorder managed by [facility]-Dr. Hernandez No pertinent past medical history Denies history of: Denies diabetes, asthma, hypertension, seizures, DVT/PE and thyroid problems PCP: Dr. Velásquez Borderline personality disorder Surgical History S/P wisdom tooth extraction S/P myringotomy with insertion of tube At age 3 S/P tonsillectomy and adenoidectomy at age 3 Family History Grandmother Breast cancer Paternal, age at diagnosis unknown Diabetes Maternal grandmother and maternal great grandmother Mother Diabetes Denies family history of Colon cancer Ovarian cancer Hyperlipidemia Hypertension Thyroid disease Stroke Social History Smoking and tobacco/nicotine status: never used tobacco/nicotine Second hand smoke exposure: Yes Alcohol intake: never Data Anesthesia Cardiac Studies: No Data to Display
[2023-06-26 08:03] VITALS: BP 94/53; PULSE 102; RESP 16; TEMP 36.4; O2SAT 94
[2023-06-26 08:21] VITALS: BP 90/53; PULSE 88; RESP 18; O2SAT 96
--- NOTE | 2023-06-26 08:35 | ANE.PACU2 ---
Inpatient post-anesthesia follow up: Airway intact: Yes Vital signs: Temperature 97.5 F Pulse Rate 88 Respiratory Rate 18 Blood Pressure 90/53 Pulse Oximetry 96 Oxygen Delivery Me thod Room Air Oxygen Flow Rate 2 Fraction of Inspir ed Oxygen Hydration adequate: Yes Nausea and vomiting: No Pain level: 1 Mental status: Baseline
== END 2023-06-26 08:34 | disposition home or self-care (01) ==
PROVIDERS: Anesthesiology; PCP Family Medicine; Visit Provider Surgery
PROC: 0DJD8ZZ Inspection of Lower Intestinal Tract, Via Natural or Artificial Opening Endoscopic (ICD-10-PCS; CPT 45378; principal; 2023-06-26 07:30)
DX: K62.89 Other specified diseases of anus and rectum (principal); K92.1 Melena; K64.4 Residual hemorrhoidal skin tags; F32.A Depression, unspecified
CPT/HCPCS: 45378; 81025; 84703; J2704; J7030

== ENCOUNTER → 2023-08-08 10:26 | Outpatient (BNVA) | payer MEDICAID, SELFPAY | PROVIDERS: PCP Family Medicine; Visit Provider Internal Medicine Rheumatology | DX: Z79.899 Other long term (current) drug therapy (principal); M19.90 Unspecified osteoarthritis, unspecified site | CPT/HCPCS: 36415; 80076; 82306; 82565; 83036; 83520; 85025; 85651; 86140 ==

== ENCOUNTER → 2023-11-05 11:00 | Outpatient (BNVA) | payer MEDICAID, SELFPAY | PROVIDERS: PCP Family Medicine; Visit Provider Nurse Practitioner Women's Health | DX: Z11.3 Encounter for screening for infections with a predominantly sexual mode of transmission (principal); E55.9 Vitamin D deficiency, unspecified | CPT/HCPCS: 82306; 86592; 86803; 87340; 87491; 87591; 87806 ==

== ENCOUNTER → 2024-01-08 10:35 | Outpatient (BNVA) | payer MEDICAID, SELFPAY | PROVIDERS: PCP Family Medicine; Visit Provider Internal Medicine Rheumatology | DX: Z79.899 Other long term (current) drug therapy (principal); M25.50 Pain in unspecified joint; M79.7 Fibromyalgia | CPT/HCPCS: 36415; 80076; 82565; 85025; 85651; 86140 ==

== ENCOUNTER 2024-05-09 19:16 | Emergency (ER) | payer MEDICAID, SELFPAY ==
[2024-05-09 20:18] VITALS: BP 109/49; PULSE 116; RESP 17; TEMP 36.8; O2SAT 97; BMI 43.7
[2024-05-09 23:57] VITALS: BP 110/84; PULSE 94; RESP 16; O2SAT 99
--- NOTE | 2024-05-09 23:58 | W.ED.SKABFB ---
HPI - Skin/Abscess/Foreign Bdy General: Chief complaint: Skin/Abscess/Foreign Body Stated complaint: spider bite on back Time Seen by Provider: 05/09/24 23:35 History of Present Illness: Patient is a 23-year-old female that presents to the emergency department with cellulitic appearing rash to her right flank. Patient reports that she was previously seen at an urgent care clinic that started on doxycycline for possible tickborne illness. She has a large red area to her right flank that is expanding according to her staff that is present in the emergency department. Patient denies fever, chills, chest pain, shortness of breath. Related Data Home Medications Medication Instructions Recorded Confirmed ketorolac 10 mg tablet 10 mg PO Q8H 09/12/23 01/29/24 Previous Rx's Medication Instructions Recorded medroxyprogesterone 150 mg/mL 150 mg IM .EVERY 90 DAYS #1 mL 11/05/23 intramuscular suspension (Depo-Provera) silver sulfadiazine 1 % topical 1 applic topical BID #50 grams 12/19/23 cream (Silvadene) hydroxychloroquine 200 mg tablet 200 mg PO BID #60 tabs 01/08/24 pregabalin 100 mg capsule (Lyrica) 100 mg PO BID #60 caps 01/08/24 galcanezumab-gnlm 120 mg/mL 120 mg SUBCUT ONCE #1 mL 01/29/24 subcutaneous syringe (Emgality) galcanezumab-gnlm 120 mg/mL 240 mg (2 mL) SUBCUT ONCE #2 mL 01/29/24 subcutaneous syringe (Emgality) cephalexin 500 mg capsule 500 mg PO Q6H 7 days #28 caps 05/10/24 Allergies Allergy/AdvReac Type Severity Reaction Status Date / Time morphine Allergy Mild Unknown Verified 01/29/24 14:42 animal dander Allergy Unknown Verified 01/29/24 14:42 chocolate flavor Allergy ADR-Nausea Verified 01/29/24 14:42 risperidone [From Risperdal] AdvReac Intermediate Verified 01/29/24 14:42 Review of Systems General: Reports: 10 or more systems reviewed and unremarkable except in HPI and below PFSH ED PFSH: Medical History COVID-19 High C-reactive protein High risk medication use Fibromyalgia Polyarthralgia Migraine headache Reports having chronic daily headaches and sees a neurologist-nurse practitioner-[facility] and is on medication. Abnormal uterine bleeding (AUB) TSH performed by Dr. Velásquez in July 2017 was normal. Per patient report coagulation studies were normal. -Pelvic ultrasound on 08/2017-normal at [facility], Microgestin 06/15 with iron started however patient was up for pill taker. -Depo-Provera given on 02/21/2018 and controls her symptoms well. -Changed to xulane patch on 09/28/2019 as she did not like weight gain with the depo Depression, controlled and mood disorder managed by [facility]-Dr. Hernandez No pertinent past medical history Denies history of: Denies diabetes, asthma, hypertension, seizures, DVT/PE and thyroid problems PCP: Dr. Velásquez Borderline personality disorder Surgical History S/P wisdom tooth extraction S/P myringotomy with insertion of tube At age 3 S/P tonsillectomy and adenoidectomy at age 3 Family History Grandmother Breast cancer Paternal, age at diagnosis unknown Diabetes Maternal grandmother and maternal great grandmother Mother Diabetes Denies family history of Colon cancer Ovarian cancer Hyperlipidemia Hypertension Thyroid disease Stroke Social History Smoking and tobacco/nicotine status: never used tobacco/nicotine Alcohol intake: never Substance/Drug Use: never Physical Exam Const: COMMON NORMALS: no acute distress, patient oriented x3 and alert GENERAL APPEARANCE: cooperative ORIENTATION/CONSCIOUSNESS: Yes awake, Yes oriented to person, Yes oriented to place and Yes oriented to time HENMT: COMMON NORMALS: normocephalic and atraumatic HEAD & SCALP: normocephalic and atraumatic FACE & SINUS: normal facial exam MOUTH: Normal oral and palatal mucosa present THROAT: posterior oropharynx normal Eye: COMMON NORMALS: Equal, round and reactive pupils present, EOMs intact bilaterally, conjunctivae normal and no scleral icterus GENERAL EYE: appearance normal, both eyes and all related structures ALIGNMENT: Yes alignment normal PERIORBITAL: periorbital findings normal CONJUNCTIVA: Yes conjunctivae normal PUPIL: Yes Equal, round and reactive pupils present Neck/C-Spine: COMMON NORMALS: full ROM GENERAL: Yes normal visual inspection Lymph: LYMPHATIC: no lymphadenopathy noted Chest: COMMONS NORMALS: normal inspection of the chest Resp: COMMON NORMALS: normal respiratory effort, No retractions and clear to auscultation bilaterally EFFORT & INSPECTION: Yes able to speak in complete sentences and Yes symmetric chest movement AUSCULTATION: clear to auscultation bilaterally Cardio: COMMON NORMALS: regular rate and Peripheral pulses 2+ throughout RATE: regular rate PERIPHERAL PULSES: Peripheral pulses 2+ throughout Extremity: COMMON NORMALS: normal to inspection GENERAL: Yes normal exam except as noted Neuro: COMMON NORMALS: patient oriented x3 SENSORIUM/ORIENTATION: Yes alert, Yes oriented to person, Yes oriented to place and Yes oriented to time CRANIAL NERVES: Yes CN normal except as noted Psych: COMMON NORMALS: mental status grossly normal, Normal thought process present, cooperative, activity/motor behavior normal, denies homicidal ideation and denies suicidal ideation THOUGHT PROCESS: Normal thought process present Skin: COMMON NORMALS: no wounds and turgor normal GENERAL SKIN EXAM: turgor normal RASHES: rashes noted (Right flank) Course Vital Signs: Vital signs: Vital Signs Temperature 98.2 F 05/09/24 20:18 Pulse Rate 94 05/09/24 23:57 Respiratory Rate 16 05/09/24 23:57 Blood Pressure 110/84 05/09/24 23:57 Pulse Oximetry 99 05/09/24 23:57 Oxygen Delivery Me thod Room Air 05/09/24 20:18 MDM - Skin/Abscess/Foreign Bdy Medicial Decision Making Patient was previously seen by another provider and started on doxycycline, likely for tickborne illness. She has no evidence of abscess or purulence. She has developed a cellulitic area that is warm to the touch and is tender. I believe she is likely developed a secondary cellulitis. I am going to start her on Keflex. Initial dose started here in the emergency department and she will discharge home with a prescription. I have advised her staff to make note of where the current cellulitis borders are and if she is continuing to expand past that area after 24 hours of antibiotics then she needs to be reevaluated. All questions answered No radiology studies performed this visit Discharge Plan Discharge Patient Disposition: Home Clinical Impression: Cellulitis Condition: Stable Prescriptions: New cephalexin 500 mg capsule 500 mg PO Q6H 7 Days Qty: 28 0RF No Action medroxyprogesterone [Depo-Provera] 150 mg/mL suspension 150 mg IM .EVERY 90 DAYS Qty: 1 3RF pregabalin [Lyrica] 100 mg capsule 100 mg PO BID Qty: 60 5RF hydroxychloroquine 200 mg tablet 200 mg PO BID Qty: 60 5RF Emgality Syringe 120 mg/mL syringe 240 mg SUBCUT ONCE Qty: 2 0RF Rx Instructions: loading dose Emgality Syringe 120 mg/mL syringe 120 mg SUBCUT ONCE Qty: 1 5RF silver sulfadiazine [Silvadene] 1 % cream 1 applic topical BID Qty: 50 0RF Rx Instructions: apply a 1.5 mm thickness ketorolac 10 mg tablet 10 mg PO Q8H Rx Instructions: maximum total duration of 5 days from all oral, intranasal, or parenteral formulations Discharge Orders: Discharge ED (Routine); Ordered 05/10/24 Ordered By: Raphael Mc Referrals: Teodoro Velásquez MD [Primary Care Provider] - Discharge Diet: Advance as tolerated Discharge Activity: Resume usual activity Patient Instructions: Pain Management, Cellulitis (ED) Activity Restrictions/Additional Instructions: Call your doctor if: The red, warm, swollen area gets larger. Your fever or pain does not go away or gets worse. The area does not get smaller after 3 days of antibiotics. You have questions or concerns about your condition or care. Coding Level of Care Code ED [employer] P[employer] Supervisor for Marylu Espinosa
[2024-05-10 00:13] VITALS: BP 110/84; PULSE 99; RESP 16; O2SAT 100
[2024-05-10] MEDS: cephALEXin 500 mg Capsule PO (00:13)
== END 2024-05-10 00:15 | disposition home or self-care (01) ==
PROVIDERS: Emergency Provider Nurse Practitioner; PCP Family Medicine
DX: L03.311 Cellulitis of abdominal wall (principal)
CPT/HCPCS: 99283

== ENCOUNTER 2024-06-10 15:36 | Outpatient (CLI) | payer MEDICAID, SELFPAY ==
[2024-06-10 16:39] LABS: Basophils % 0.6 %; Eosinophils # 0.2 10^3/uL (0.0-0.8); Eosinophils % 3.3 %; Lymphocytes # 2.1 10^3/uL (0.8-4.8); Mean Corpuscular HGB Conc 33.2 g/dL (30-55); Mean Corpuscular Hemoglobin 25.9 pg (27-33); Mean Platelet Volume 11.6 fL (7.4-10.4); Monocytes # 0.3 10^3/uL (0.2-0.9); Neutrophils # 3.74 10^3/uL (1.8-7.7); Neutrophils % 57.8 %; Nucleated Red Blood Cells % 0 %; Platelet Count 275 10^3/cmm (157-399); Red Blood Count 4.87 10^6/uL (3.85-5.65); Red Cell Distribution Width 14.6 % (12.1-15.1); White Blood Count 6.46 10^3/uL (3.29-11.43)
[2024-06-10 17:05] LABS: Erythrocyte Sedimentation Rate 19 mm/hr (0-15)
[2024-06-10 17:21] LABS: Alanine Aminotransferase 24 U/L (0-33); Albumin Level 4.1 g/dL (3.5-5.2); Alkaline Phosphatase 78 U/L (35-105); Aspartate Amino Transferase 19 U/L (0-32); C Reactive Protein 16.5 mg/L (0.0-4.9); Globulin 2.9 g/dL (1.3-4.6); Glomerular Filtration Rate 154.3 mL/min (90-130); Total Bilirubin 0.3 mg/dL (0.15-1.2)
== END 2024-06-10 15:37 | disposition home or self-care (01) ==
LOC: LAB 15:36
PROVIDERS: PCP Family Medicine; Visit Provider Internal Medicine Rheumatology
DX: Z79.899 Other long term (current) drug therapy (principal); M25.50 Pain in unspecified joint
CPT/HCPCS: 36415; 80076; 82565; 85025; 85651; 86140

== ENCOUNTER → 2024-07-08 10:29 | Outpatient (BNVA) | payer MEDICAID, SELFPAY | PROVIDERS: PCP Family Medicine; Visit Provider Podiatrist Foot & Ankle Surgery | DX: M79.671 Pain in right foot (principal); M79.672 Pain in left foot; M72.2 Plantar fascial fibromatosis | CPT/HCPCS: 73630 ==

== ENCOUNTER 2024-09-17 08:06 | Outpatient (CLI) | payer MEDICAID, SELFPAY ==
[2024-09-17 09:18] LABS: Cortisol Random 5.45 ug/dL (2.47-19.5); Thyroid Stimulating Hormone 3.41 uIU/mL (0.27-4.20)
== END 2024-09-17 08:07 | disposition home or self-care (01) ==
PROVIDERS: PCP Family Medicine; Visit Provider Internal Medicine
DX: E16.2 Hypoglycemia, unspecified (principal)
CPT/HCPCS: 36415; 82533; 84439; 84443

== ENCOUNTER 2024-09-30 07:41 | Oncology outpatient (recurring) (ONCR) | payer MEDICAID, SELFPAY ==
[2024-09-30 08:29] VITALS: BP 110/72; PULSE 97; RESP 18; TEMP 36.8; O2SAT 97
[2024-09-30] MEDS: cosyntropin 0.25 mg SDV IVP (08:30)
[2024-09-30 09:53] LABS: Cosyntropin 30 Minute 20.93 mcg/dL
[2024-09-30 10:10] VITALS: BP 101/62; PULSE 94; RESP 16; TEMP 36.9; O2SAT 98
[2024-09-30 10:26] LABS: Cosyntropin 1 Hour 22.28 mcg/dL
== END 2024-10-24 23:59 | disposition home or self-care (01) ==
PROVIDERS: PCP Family Medicine; Visit Provider Internal Medicine
DX: E16.2 Hypoglycemia, unspecified (principal); F41.1 Generalized anxiety disorder
CPT/HCPCS: 82533; J0834

== ENCOUNTER → 2024-11-26 15:18 | Outpatient (BNVA) | payer MEDICAID, SELFPAY | PROVIDERS: PCP Family Medicine; Visit Provider Internal Medicine Rheumatology | DX: Z79.899 Other long term (current) drug therapy (principal) | CPT/HCPCS: 36415; 80076; 82306; 82565; 85025; 85651; 86140; 86480; 86704; 86803; 87340 ==

== ENCOUNTER → 2024-12-17 10:59 | Outpatient (BNVA) | payer MEDICAID, SELFPAY | PROVIDERS: PCP Family Medicine; Visit Provider Nurse Practitioner Women's Health | DX: Z30.9 Encounter for contraceptive management, unspecified (principal) | CPT/HCPCS: 81025 ==

== ENCOUNTER 2024-12-28 12:20 | Outpatient (CLI) | payer MEDICAID, SELFPAY ==
[2024-12-28 13:09] LABS: Hematocrit 39.1 % (36-47); Hemoglobin 13.30 g/dL (11.27-16.99); Mean Corpuscular HGB Conc 34.0 g/dL (30-55); Mean Corpuscular Hemoglobin 26.6 pg (27-33); Mean Corpuscular Volume 78.2 fl (85-98); Nucleated Red Blood Cells % 0 %; Platelet Count 269 10^3/cmm (157-399); Red Blood Count 5.00 10^6/uL (3.85-5.65); White Blood Count 6.98 10^3/uL (3.29-11.43)
[2024-12-28 13:37] LABS: Alanine Aminotransferase 29 U/L (0-33); Albumin Level 4.5 g/dL (3.5-5.2); Alkaline Phosphatase 70 U/L (35-105); Aspartate Amino Transferase 22 U/L (0-32); Globulin 3.2 g/dL (1.3-4.6); Total Protein 7.7 g/dL (6.6-8.7)
== END 2024-12-28 12:21 | disposition home or self-care (01) ==
PROVIDERS: PCP Family Medicine; Visit Provider Internal Medicine Rheumatology
DX: Z79.899 Other long term (current) drug therapy (principal)
CPT/HCPCS: 36415; 80076; 82565; 85025; 85651; 86140

== ENCOUNTER → 2025-02-01 08:49 | Outpatient (BNVA) | payer OTHER, SELFPAY | PROVIDERS: PCP Family Medicine; Visit Provider Nurse Practitioner Psychiatric/Mental Health | DX: Z79.899 Other long term (current) drug therapy (principal) | CPT/HCPCS: 80053; 80061; 83036 ==

== ENCOUNTER → 2025-03-02 11:37 | Outpatient (BNVA) | payer MEDICAID, SELFPAY | PROVIDERS: PCP Family Medicine; Visit Provider Podiatrist Foot & Ankle Surgery | DX: M76.61 Achilles tendinitis, right leg (principal); M76.62 Achilles tendinitis, left leg; M79.671 Pain in right foot; M79.672 Pain in left foot | CPT/HCPCS: 73610 ==

== ENCOUNTER 2025-03-31 07:42 | Oncology outpatient (recurring) (ONCR) | payer MEDICAID, SELFPAY ==
--- NOTE | 2025-03-31 08:00 | MR_ITS ---
WS: [id number] MRI LEFT ANKLE WITHOUT CONTRAST. COMPARISON: Radiograph 03/02/2025 Multiplanar, multisequence imaging is performed without contrast. History: Chronic Achilles pain. No injury. The Achilles tendon is normal size. There is a small amount of intermediate signal in the central tendon centered 5.6 cm above the insertion site. There is no tear. This is consistent with mild tendinopathy. No concave deformity of the tendon. The Achilles tendon appears short with the gastrocnemius attachment inferior along the tendon. This is probably normal variation. Small amount of fluid in the retrocalcaneal bursa. There is also a very subtle amount of edema in the posterior calcaneus near the Achilles insertion. Very mildly enlarged superior margin of the posterior calcaneal process. Plantar aponeurosis appears normal. No osteochondral lesions along the talar dome. Interosseous membrane is normal. Remaining tendons at the ankle are normal. No ligament tear is identified. No soft tissue edema. MR/MR ankle LT wo con* [id number] IMPRESSION: 1. Very minimal intermediate signal in the central Achilles tendon 5.6 cm abov e the insertion site consistent with mild tendinopathy. 2. Very minimal Jaime deformity with a small amount of fluid in the retrocal caneal bursa and in the posterior calcaneal process. 3. No joint effusion.
== END 2025-04-25 23:59 | disposition home or self-care (01) ==
LOC: RAD 07:43 → ONCMED 04-01 11:28
PROVIDERS: PCP Family Medicine; Visit Provider Internal Medicine
DX: M76.61 Achilles tendinitis, right leg (principal); M76.62 Achilles tendinitis, left leg; R93.6 Abnormal findings on diagnostic imaging of limbs
CPT/HCPCS: 73721

== ENCOUNTER 2025-04-23 11:47 | Outpatient (CLI) | payer MEDICAID, SELFPAY ==
[2025-04-23 12:18] LABS: Hematocrit 37.2 % (36-47); Hemoglobin 12.30 g/dL (11.27-16.99); Mean Corpuscular HGB Conc 33.1 g/dL (30-55); Mean Corpuscular Hemoglobin 26.5 pg (27-33); Mean Corpuscular Volume 80.2 fl (85-98); Nucleated Red Blood Cells % 0 %; Platelet Count 286 10^3/cmm (157-399); Red Blood Count 4.64 10^6/uL (3.85-5.65); White Blood Count 6.47 10^3/uL (3.29-11.43)
[2025-04-23 12:56] LABS: Alanine Aminotransferase 20 U/L (0-33); Albumin Level 4.3 g/dL (3.5-5.2); Alkaline Phosphatase 66 U/L (35-105); Aspartate Amino Transferase 16 U/L (0-32); Globulin 2.9 g/dL (1.3-4.6); Total Protein 7.2 g/dL (6.6-8.7)
== END 2025-04-23 11:48 | disposition home or self-care (01) ==
LOC: LAB 11:49
PROVIDERS: PCP Family Medicine; Visit Provider Internal Medicine Rheumatology
DX: Z79.899 Other long term (current) drug therapy (principal)
CPT/HCPCS: 36415; 80076; 82565; 85025; 85651; 86140

== ENCOUNTER 2025-05-12 20:06 | Outpatient (CLI) | payer MEDICAID, SELFPAY | END 2025-05-12 20:07 | disposition home or self-care (01) | LOC: SLEEP 20:08 | PROVIDERS: PCP Family Medicine; Referring Provider Nurse Practitioner Psychiatric/Mental Health; Visit Provider Internal Medicine Pulmonary Disease | DX: G47.33 Obstructive sleep apnea (adult) (pediatric) (principal); R53.83 Other fatigue | CPT/HCPCS: 95810 ==